=== PATIENT | male | born 1980 | race Caucasian/White ===

== ENCOUNTER 2017-10-04 09:01 | Day surgery (SDC) | payer OTHER ==
[~2017-10-04] VITALS: Ht 172.7 cm; Wt 60.9 kg
[~2017-10-04 09:01] MED LIST: 0.9% SODIUM CHLORIDE 10 ML SYRINGE IVP PRN; METOPROLOL TARTRATE 5 MG/5 ML VIAL ONE; NITROGLYCERIN 400 MCG/SUBLINGUAL SPRAY 4.9 GM BOTTLE SL ONE
[2017-10-04] MEDS ORDERED: 0.9% SODIUM CHLORIDE 10 ML SYRINGE IVP ONE (09:27)
[2017-10-04] MEDS ORDERED: CLON.5 PO (09:37)
[2017-10-04] MEDS ORDERED: METOPROLOL TARTRATE 50 MG TABLET PO ONE (10:00)
[2017-10-04 10:02] LABS: ANION GAP 9 mmol/L (8-16); CALCIUM, TOTAL 8.9 mg/dL (8.8-10.5); CARBON DIOXIDE 28 mmol/L (22-29); CHLORIDE 105 mmol/L (98-107); CREATININE 1.12 mg/dL (0.60-1.30); GLOMERULAR FILTR. RATE CALC > 60 mL/min (>60); GLUCOSE,RANDOM 88 mg/dL (70-110); POTASSIUM 3.8 mmol/L (3.5-5.1); SODIUM SERUM 142 mmol/L (136-145); UREA NITROGEN, BLOOD 14 mg/dL (7-18)
== END 2017-10-04 11:30 | disposition home or self-care (01) ==
LOC: SURGERY 09:01 → EDSTATUS 11:00 → SURGERY 11:30
PROVIDERS: ATTEND Internal Medicine Cardiovascular Disease
DX: I49.8 Other specified cardiac arrhythmias (principal); I45.6 Pre-excitation syndrome; Z53.8 Procedure and treatment not carried out for other reasons; Z98.890 Other specified postprocedural states
CPT/HCPCS: 93005; J3490

== ENCOUNTER 2018-02-24 07:55 | Day surgery (SDC) | payer OTHER ==
[~2018-02-24] VITALS: Ht 172.7 cm; Wt 65.5 kg
[~2018-02-24 07:55] MED LIST changes: -0.9% SODIUM CHLORIDE 10 ML SYRINGE IVP PRN; +CLON.5 PO; +DILT60 PO; -METOPROLOL TARTRATE 5 MG/5 ML VIAL ONE; -NITROGLYCERIN 400 MCG/SUBLINGUAL SPRAY 4.9 GM BOTTLE SL ONE
[2018-02-24] MEDS ORDERED: 0.9% SODIUM CHLORIDE 10 ML SYRINGE IVP PRN (08:00)
[2018-02-24] MEDS ORDERED: DILTIAZEM HCL 5 MG/ML 5 ML VIAL IVP ONE ×2 (08:45→08:53)
[2018-02-24 09:07] LABS: CREATININE 1.33 mg/dL (0.60-1.30); POTASSIUM 3.3 mmol/L (3.5-5.1)
[2018-02-24] MEDS ORDERED: SODIUM CHLORIDE 0.9% 0 ML IV ONE (09:08)
[2018-02-24] MEDS ORDERED: METOPROLOL TARTRATE 5 MG/5 ML VIAL ONE (09:30)
== END 2018-02-24 10:20 | disposition home or self-care (01) ==
LOC: SURGERY 07:55 → EDSTATUS 10:00 → SURGERY 10:20
PROVIDERS: ATTEND Internal Medicine Cardiovascular Disease
DX: I49.8 Other specified cardiac arrhythmias (principal); I20.8 Other forms of angina pectoris; I25.9 Chronic ischemic heart disease, unspecified; I51.89 Other ill-defined heart diseases; I73.9 Peripheral vascular disease, unspecified; Z53.8 Procedure and treatment not carried out for other reasons; Z88.8 Allergy status to other drugs, medicaments and biological substances; Z98.890 Other specified postprocedural states; Z79.899 Other long term (current) drug therapy
CPT/HCPCS: 36415; 80048; 93005; J3490; J7030